=== PATIENT | male | born 1965 | race Caucasian/White ===

== ENCOUNTER → 2023-07-04 06:23 | Outpatient (REF) | payer BC, SELFPAY ==
[2023-07-04 09:32] LABS: % Basophils 0.8 % (0-2); % Eosinophils 1.9 % (0-6); % Lymphocytes 45.4 % (20.5-51.1); % Monocytes 10.5 % (1.7-9.3); % Neutrophils 41.4 % (42.2-75.2); Absolute Eosinophils 0.1 10^3/uL (0-0.7); Absolute Lymphocytes 2.4 10^3/uL (1.2-3.4); Absolute Monocytes 0.6 10^3/uL (0.1-0.6); Absolute Neutrophils 2.2 10^3/uL (1.4-6.5); Hematocrit 38.6 % (39.0-52.0); Hemoglobin 13.6 g/dL (13.0-18.0); Mean Corp Hgb Conc. 35.2 g/dL (33.0-37.0); Mean Platelet Volume 9.6 fL (7.4-10.4); Nucleated Red Blood Cells % 0 % (-); Platelet Count 248 10^3/uL (130-400); Red Blood Cell Count 4.54 10^6/uL (4.70-6.10); Red Cell Dist. Width 12.4 % (11.5-14.5); White Blood Cell Count 5.2 10^3/uL (4.8-10.8)
[2023-07-04 09:40] LABS: Albumin 4.2 g/dl (3.5-5.0); Blood Urea Nitrogen 18 mg/dl (9-20); Calcium 8.5 mg/dl (8.4-10.2); Carbon Dioxide 30 mmol/L (22-30); Chloride 96 mmol/L (98-107); Glucose 106 mg/dl (70-99); Sodium 133 mmol/L (135-145); eGFR > 60.00
[2023-07-04 09:51] LABS: Urine Albumin Negative (Neg - Trace); Urine Bilirubin Negative (Negative); Urine Character Clear (Clear); Urine Color Yellow; Urine Glucose Negative (Negative); Urine Ketone Negative (Negative); Urine Leukocyte Negative (Negative); Urine Nitrite Negative (Negative); Urine Occult Blood Negative (Negative); Urine Specific Gravity 1.015 (<1.030); Urine Urobilinogen Negative (Neg - 1+)
[2023-07-04 10:11] LABS: PSA, Total - Screen 1.01 ng/ml (0.0-4.0); TSH 6.58 uIU/ml (0.47-4.68)
[2023-07-04 10:30] LABS: Hepatitis C Antibody Negative (Negative)
[2023-07-04 10:57] LABS: Protein/creatinine Ratio 0.1; Urine Protein 7 mg/dl
== END ==
LOC: HWLAB 06:23
PROVIDERS: ATTENDING PHYSICIAN Internal Medicine Hematology & Oncology; FAMILY PHYSICIAN Family Medicine
DX: Z12.5 Encounter for screening for malignant neoplasm of prostate (principal); Z00.00 Encounter for general adult medical examination without abnormal findings; N18.1 Chronic kidney disease, stage 1; I10 Essential (primary) hypertension
CPT/HCPCS: 36415; 80069; 81003; 82570; 84156; 84443; 85025; 86803; G0103

== ENCOUNTER → 2023-08-02 10:42 | Outpatient (REF) | payer BC, SELFPAY ==
[2023-08-02 13:18] LABS: Blood Urea Nitrogen 17 mg/dl (9-20); Calcium 8.8 mg/dl (8.4-10.2); Carbon Dioxide 29 mmol/L (22-30); Chloride 105 mmol/L (98-107); Glucose 102 mg/dl (70-99); Sodium 138 mmol/L (135-145); eGFR > 60.00
[2023-08-02 13:34] LABS: Free T4 0.95 ng/dl (0.78-2.19)
[2023-08-02 13:48] LABS: TSH 2.85 uIU/ml (0.47-4.68)
== END ==
LOC: HWLAB 10:42
PROVIDERS: ATTENDING PHYSICIAN Internal Medicine Hematology & Oncology; FAMILY PHYSICIAN Family Medicine
DX: N18.1 Chronic kidney disease, stage 1 (principal); I10 Essential (primary) hypertension; E87.6 Hypokalemia; E03.9 Hypothyroidism, unspecified
CPT/HCPCS: 36415; 80048; 84439; 84443

== ENCOUNTER → 2023-10-10 08:13 | Outpatient (REF) | payer BC, SELFPAY ==
[2023-10-10 10:59] LABS: ALT (SGPT) 43 U/L (0-50); AST (SGOT) 32 U/L (17-59); Albumin 4.5 g/dl (3.5-5.0); Alkaline Phosphatase 61 U/L (38-126); Blood Urea Nitrogen 21 mg/dl (9-20); Carbon Dioxide 29 mmol/L (22-30); Chloride 101 mmol/L (98-107); Glucose 98 mg/dl (70-99); HDL Cholesterol 44 mg/dl; LDL Cholesterol, Calculated 55 mg/dl; Potassium 4.4 mmol/L (3.5-5.1); Sodium 140 mmol/L (135-145); Total Bilirubin 0.8 mg/dl (0.2-1.3); Total Cholesterol 112 mg/dl (50-199); Triglyceride 66 mg/dl (10-149); Very Low Density Lipoprotein 13 mg/dl (0-30); eGFR > 60.00
== END ==
LOC: HWLAB 08:13
PROVIDERS: ATTENDING PHYSICIAN Internal Medicine Cardiovascular Disease; FAMILY PHYSICIAN Family Medicine; REFERRING PHYSICIAN Internal Medicine Hematology & Oncology
DX: N18.1 Chronic kidney disease, stage 1 (principal); I10 Essential (primary) hypertension; E78.2 Mixed hyperlipidemia
CPT/HCPCS: 36415; 80053; 80061

== ENCOUNTER → 2024-04-26 10:40 | Outpatient (REF) | payer BC, SELFPAY ==
[2024-04-26 16:46] LABS: Urine Albumin Negative (Neg - Trace); Urine Bilirubin Negative (Negative); Urine Character Clear (Clear); Urine Color Yellow; Urine Glucose Negative (Negative); Urine Ketone Negative (Negative); Urine Leukocyte Negative (Negative); Urine Nitrite Negative (Negative); Urine Occult Blood Negative (Negative); Urine Specific Gravity 1.015 (<1.030); Urine Urobilinogen Negative (Neg - 1+)
[2024-04-26 16:47] LABS: % Basophils 0.7 % (0-2); % Eosinophils 1.8 % (0-6); % Immature Granulocytes 0.2 % (0-0.5); % Lymphocytes 35.1 % (20.5-51.1); % Monocytes 6.7 % (1.7-9.3); % Neutrophils 55.5 % (42.2-75.2); Absolute Eosinophils 0.1 10^3/uL (0-0.7); Absolute Lymphocytes 1.5 10^3/uL (1.2-3.4); Absolute Monocytes 0.3 10^3/uL (0.1-0.6); Absolute Neutrophils 2.4 10^3/uL (1.4-6.5); Hematocrit 40.9 % (39.0-52.0); Hemoglobin 13.3 g/dL (13.0-18.0); Mean Corp Hgb Conc. 32.5 g/dL (33.0-37.0); Mean Corpuscular Hgb 30.1 pg (27.0-31.0); Mean Corpuscular Volume 92.5 fL (80.0-94.0); Mean Platelet Volume 9.9 fL (7.4-10.4); Nucleated Red Blood Cells % 0 % (-); Platelet Count 206 10^3/uL (130-400); Red Blood Cell Count 4.42 10^6/uL (4.70-6.10); Red Cell Dist. Width 12.8 % (11.5-14.5); White Blood Cell Count 4.3 10^3/uL (4.8-10.8)
[2024-04-26 16:52] LABS: ALT (SGPT) 32 U/L (0-50); AST (SGOT) 26 U/L (17-59); Albumin 4.3 g/dl (3.5-5.0); Alkaline Phosphatase 42 U/L (38-126); Blood Urea Nitrogen 21 mg/dl (9-20); Calcium 8.9 mg/dl (8.4-10.2); Carbon Dioxide 33 mmol/L (22-30); Chloride 103 mmol/L (98-107); Glucose 101 mg/dl (70-99); HDL Cholesterol 40 mg/dl; LDL Cholesterol, Calculated 76 mg/dl; Potassium 4.2 mmol/L (3.5-5.1); Sodium 141 mmol/L (135-145); Total Bilirubin 0.6 mg/dl (0.2-1.3); Total Cholesterol 137 mg/dl (50-199); Total Protein 6.5 g/dl (6.3-8.2); Triglyceride 107 mg/dl (10-149); Very Low Density Lipoprotein 21 mg/dl (0-30); eGFR > 60.00
[2024-04-26 17:08] LABS: Free T4 0.81 ng/dl (0.78-2.19)
[2024-04-26 17:22] LABS: PSA, Total - Screen 0.95 ng/ml (0.0-4.0); TSH 4.03 uIU/ml (0.47-4.68)
== END ==
LOC: HWLAB 10:40
PROVIDERS: ATTENDING PHYSICIAN Internal Medicine Cardiovascular Disease; FAMILY PHYSICIAN Family Medicine
DX: E03.9 Hypothyroidism, unspecified (principal); E78.5 Hyperlipidemia, unspecified; I10 Essential (primary) hypertension; Z12.5 Encounter for screening for malignant neoplasm of prostate; E78.2 Mixed hyperlipidemia
CPT/HCPCS: 36415; 80053; 80061; 81003; 84439; 84443; 85025; G0103

== ENCOUNTER 2024-05-14 05:58 | Day surgery (SDC) | payer BC, SELFPAY ==
[2024-05-14 06:23] VITALS: BMI 26.6
[2024-05-14 06:24] VITALS: BP 129/66; BMI 26.6
[2024-05-14] MEDS: TYLENOL 1000 MG PO (06:27)
[2024-05-14] MEDS: NORMOSOL-R/PLASMALYTE-A 1000 IV (06:39)
--- NOTE | 2024-05-14 07:02 | HP.FOC2 ---
Focused History & Physical
Chief Complaint
HPI:
Chief Complaint: Left hip lipoma
HPI / Indication for Planned Procedure:
Excision of a symptomatic left hip lipoma
Relevant Past Medical History: Negative
Relevant Social History: Negative
Relevant Family History: Negative
Relevant Past Surgical History: Negative
Review of Systems
Review of Pertinent Systems: All Systems Negative
Medication
See Medication form for detailed medications: Yes
Medication List (including Herbals & OTC):
amlodipine 5 mg tablet 5 mg PO DAILY 05/13/24
loratadine 10 mg tablet 10 mg PO DAILY 05/13/24
metoprolol succinate 50 mg tablet,extended release 24 hr 50 mg PO DAILY 05/13/24
olmesartan 5 mg tablet 5 mg PO HS 05/13/24
rosuvastatin 5 mg tablet 5 mg PO HS 05/13/24
turmeric root extract 500 mg tablet 3,000 mg PO DAILY 05/13/24
Medications Reviewed: Yes
Allergies and Reactions
Patient has Allergies: Yes
Noted Allergies and Reactions:
Allergy/AdvReac Type Severity Reaction Status Date / Time
Penicillins Allergy Rash Verified 05/14/24 06:22
Pertinent Physical Exam
All Other Systems: Negative
Head/Neck: Normal
Diagnosis / Assessment
symptomatic left hip lipoma
Plan / Procedure
Excision of a symptomatic left hip lipoma
Anesthesia/Sedation to be done by Anesthesia Provider: Yes
--- NOTE | 2024-05-14 07:03 | W.SUR.PREOP ---
Pre-Operative Surgical Note
-
I have examined this patient prior to the performance of the scheduled procedure.
The patient's condition is unchanged from the time of the current History and
Physical and the patient is able to undergo the scheduled procedure.
[2024-05-14 07:56] VITALS: BP 105/56
[2024-05-14 08:00] VITALS: BP 106/57
--- NOTE | 2024-05-14 08:10 | W.IMMPOSTOP ---
Surgical Immed Post Op Note
-
Primary Surgeon: Parviz Irizarry MD
Assisting Surgeon: None
Pre-op Diagnosis: Left hip lipoma
Post-op Diagnosis: Same
Procedure Performed: Excision of left hip lipoma
Anesthesia Type: General
Specimen / Cultures: Left hip lipoma
Estimated Blood Loss: 1 cc
Complications: None
Operative Findings: 6 x 5 cm unencapsulated left hip lipoma with multiple interdigitations, removed in pieces. No palpable residual disease left behind.
--- NOTE | 2024-05-14 08:12 | OR.RPT ---
Addendum entered and electronically signed by Parviz Irizarry MD 05/14/24 08:21:
Under Details of the operation:
It should read: after appropriate sedation by anesthesia, the area of the 'left hip' was prepped and draped in the usual fashion. (not 'back')
Original Note:
Operative Report
Operative Report
Patient Name: Vernon Camarillo
: 1965
Date of Operation: 05/14/2024
Preoperative Diagnosis: Left hip lipoma
Postoperative Diagnosis: Same
Procedure(s):
Excision of lipoma
Surgeon(s):
Dr. Irizarry
Ultrasonic Cleaner(s):
BERENICE Mcdowell
Anesthesia: MAC
Estimated Blood Loss: 1 cc
Urine Output: None
Drains/Lines/Implants: None
Specimens:
1. Lipoma
Indication for surgery:
This is a 58-year-old male with a symptomatic enlarging left hip mass. After evaluation in the office he was diagnosed with a lipoma. After discussion of risk benefits and alternatives he elected and was consented for surgery.
Operative Findings: 6 x 5 cm unencapsulated left hip lipoma with multiple interdigitations, removed in pieces. No palpable residual disease left behind.
Details of the operation:
The patient was brought to the operating room a placed in the right lateral decubitus position. After appropriate sedation by anesthesia, the area of the back was prepped and draped in the usual fashion. A linear incision over natural skin line
was made over the mass and carried down through the subcutaneous tissue. The lipoma was freed circumferentially taking care not to come across the many interdigitating extensions that it had, some of which extended into the underlying muscle. The
lipoma was unencapsulated so came out in multiple pieces. The specimen which measured roughly 6 x 5 cm was passed off the field. The cavity was irrigated and hemostasis was achieved. The space was closed with interrupted 3-0 Vicryl sutures from
the subcutaneous skin down to the overlying fascia. The dermis was then approximated using interrupted 3-0 Vicryl suture. The skin was then closed using everting 3-0 Vicryl sutures followed by 4-0 Monocryl, followed by Dermabond. All counts were
correct and the patient was transported to the PACU for recovery in good condition.
I was the attending physician and performed the procedure with assistance of the PA above. The assistance of BERENICE Mcdowell was required due to the complexity of the procedure. During the procedure Sravani assisted with retraction, resection, and
closure of the wound. I was present for all portions of the case, excluding skin closure.
Parviz Irizarry MD
[2024-05-14 08:15] VITALS: BP 119/67
[2024-05-14 08:30] VITALS: BP 124/70
== END 2024-05-14 08:45 | disposition home or self-care (01) ==
LOC: SDS 05:58
PROVIDERS: ATTENDING PHYSICIAN Surgery
PROC: 0JBM0ZZ Excision of Left Upper Leg Subcutaneous Tissue and Fascia, Open Approach (ICD-10-PCS; 2024-05-14)
DX: R22.42 Localized swelling, mass and lump, left lower limb (principal); D17.24 Benign lipomatous neoplasm of skin and subcutaneous tissue of left leg
CPT/HCPCS: 27043; 88304